=== PATIENT | female | born 1950 | race Hispanic/Latino ===

== ENCOUNTER 2016-10-21 19:02 | Inpatient (IN) | payer MEDICARE, BC ==
[2016-10-21 19:04] VITALS: BMI 25.0
[2016-10-21 19:54] LABS: BASO # 0.1 K/uL (0.0-0.2); BASO % 0.7 % (0.0-2.0); EOS # 0.1 K/uL (0.0-0.7); EOS % 1.1 % (0.0-4.0); HEMATOCRIT 38.7 % (34.0-47.0); LYMPH # 1.3 K/uL (1.0-4.3); LYMPH % 10.7 % (20.0-40.0); MEAN CELL VOLUME 89.6 fl (81.0-99.0); MEAN CORPUSCULAR HEMOGLOBIN 28.7 pg (27.0-31.0); MEAN CORPUSCULAR HGB CONC 32.1 g/dL (33.0-37.0); MEAN PLATELET VOLUME 9.2 fl (7.2-11.7); MONO # 0.5 K/uL (0.0-0.8); MONO % 4.1 % (0.0-10.0); NEUT # 10.3 K/uL (1.8-7.0); NEUT % 83.4 % (50.0-75.0); NRBC % 0.1 % (0.0-0.0); RED CELL DISTRIBUTION WIDTH 14.3 % (11.5-14.5); WHITE BLOOD COUNT 12.4 K/uL (4.8-10.8)
[2016-10-21 19:59] LABS: ALB/GLOB RATIO 1.2 (1.0-2.1); ALCOHOL SERUM < 10 mg/dl (0-10); ALKALINE PHOSPHATASE 90 U/L (38-126); ALT/SGPT 28 U/L (9-52); AST/SGOT 19 U/L (14-36); BILIRUBIN,TOTAL 0.3 mg/dl (0.2-1.3); BLOOD UREA NITROGEN 16 mg/dl (7-17); CALCIUM 9.2 mg/dL (8.4-10.2); CARBON DIOXIDE 28 mmol/L (22-30); CHLORIDE 105 mmol/L (98-107); GFR AFRICAN-AMERICAN > 60; GLUCOSE,RANDOM 124 mg/dL (65-105); MAGNESIUM 1.8 MG/DL (1.6-2.3); PHOSPHOROUS 3.4 mg/dl (2.5-4.5); POTASSIUM 3.4 MMOL/L (3.6-5.0); SODIUM 149 mmol/l (132-148); TOTAL PROTEIN 7.5 G/DL (6.3-8.2)
[2016-10-21 20:25] LABS: PARTIAL THROMBOPLASTIN TIME 24.6 SECONDS (23.3-32.5)
--- NOTE | 2016-10-21 21:32 | ED PDOC ---
HPI: Psych/Substance Abuse Time Seen by Provider: 10/21/16 19:16 Chief Complaint (Nursing): Altered Mental Status Chief Complaint (Provider): depressed vomiting History Per: Patient, Family Onset/Duration Of Symptoms: Days (1) Current Symptoms Are (Timing): Still Present Severity: Severe Associated Symptoms: Anxiety, Depression Additional Complaint(s): Pt with h/o depression. reports that she said she "just wanted to sleep " and may have taken extra sleeping medication and then started vomiting. Pt very depressed. Denies taking extra pain medications. Past Medical History Reviewed: Historical Data, Nursing Documentation, Vital Signs Vital Signs: Last Vital Signs Temp 99.4 F 10/21/16 19:09 Pulse 100 H 10/21/16 19:09 Resp 16 10/21/16 19:09 BP 171/103 H 10/21/16 19:09 Pulse Ox 96 10/21/16 19:09 - Medical History PMH: Anemia, Anxiety, Arthritis, Bipolar Disorder, Dementia, Depression, HTN, Migraine Denies: Diabetes, Hepatitis, Chronic Kidney Disease - Surgical History Surgical History: Tonsillectomy - Family History Family History: States: Unknown Family Hx - Social History Alcohol: None Drugs: Denies - Immunization History Hx Tetanus Toxoid Vaccination: No Hx Influenza Vaccination: No Hx Pneumococcal Vaccination: ( is not sure) - Home Medications Home Medications: Ambulatory Orders Medication Instructions Recorded Atorvastatin [Lipitor] 20 mg PO DAILY 07/04/16 Gabapentin [Neurontin] 600 mg PO TID 07/04/16 Lisinopril [Zestril] 20 mg PO DAILY 07/04/16 Omeprazole 40 mg PO DAILY 07/04/16 Timolol Maleate [Timoptic] 2 drop OP DAILY 07/04/16 Travoprost [Travatan Z] 2 drop OP DAILY 07/04/16 Oxycodone HCl/Acetaminophen 1 tab PO Q8H PRN 10/22/16 [Oxycodon-Acetaminophen 7.5-325] Diclofenac Epolamine [Flector] 2 each TD HS PRN 10/25/16 QUEtiapine [SEROquel] 50 mg PO Q12 #28 tab 10/25/16 Zolpidem [Ambien] 5 mg PO HS PRN #14 tab 10/25/16 methIMAzole [Tapazole] 5 mg PO BID #60 tab 10/25/16 - Allergies Allergies/Adverse Reactions: Allergies Allergy/AdvReac Type Severity Reaction Status Date / Time pregabalin [From Lyrica] Allergy RASH Verified 10/22/16 00:25 Review of Systems ROS Statement: Except As Marked, All Systems Reviewed And Found Negative (and as per HPI) Constitutional: Positive for: Chills, Weakness, Malaise Gastrointestinal: Positive for: Nausea, Vomiting. Negative for: Abdominal Pain , Diarrhea Psych: Positive for: Anxiety, Depression. Negative for: Suicidal ideation, Withdrawal Physical Exam - Reviewed Nursing Documentation Reviewed: Yes Vital Signs Reviewed: Yes - Physical Exam Appears: Positive for: Non-toxic, In Acute Distress Head Exam: Positive for: ATRAUMATIC, NORMOCEPHALIC Skin: Positive for: Warm, Dry Eye Exam: Positive for: EOMI, PERRL ENT: Negative for: Pharyngeal Erythema, Tonsillar Exudate Neck: Positive for: Painless ROM, Supple Cardiovascular/Chest: Positive for: Regular Rate, Rhythm, Chest Non Tender. Negative for: Murmur Respiratory: Positive for: Normal Breath Sounds. Negative for: Wheezing Gastrointestinal/Abdominal: Positive for: Bowel Sounds, Soft. Negative for: Tenderness, Mass, Distended, Guarding Back: Positive for: Normal Inspection. Negative for: Vertebral Tenderness Extremity: Positive for: Normal ROM. Negative for: Pedal Edema Lymphatic: Negative for: Adenopathy Neurologic/Psych: Positive for: Alert, fisheries enforcement officer II-XII (intact), Oriented (x2), Mood/ Affect (anxious and tearful). Negative for: Motor/Sensory Deficits - Laboratory Results Result Diagrams: 10/22/16 06:30 10/25/16 06:59 - ECG ECG: Positive for: Interpreted By Nh ECG Rhythm: Positive for: Normal QRS, Normal ST Segment, Sinus Rhythm O2 Sat by Pulse Oximetry: 96 Pulse Ox Interpretation: Normal - Radiology X-Ray: Interpreted by Nh X-Ray Interpretation: No Acute Disease - Progress ED Course And Treament: Vomiting improved post IV Zofran. Now pt feels anxious, and requesting dosing of her pain medications. Medically stable for psychiatric admission. Disposition - Clinical Impression Clinical Impression: Mixed anxiety and depressive disorder Counseled Patient/Family Regarding: Studies Performed, Diagnosis - Disposition Disposition Time: 20:00 Condition: STABLE
[2016-10-21] MEDS ORDERED: Enalaprilat 2.5 MG/2 ML IVP STA (23:01)
[2016-10-21] MEDS ORDERED: EnalaprilAT 1.25 mg/ml Inj ONE (23:04)
[2016-10-22] MEDS ORDERED: Magnesium Hydroxide Susp 30 ml UD PO PRN (02:23)
[2016-10-22] MEDS ORDERED: Alum-Mag Hydrox-Simethicone Susp (30 mL) PO PRN (02:23)
[2016-10-22] MEDS ORDERED: Bismuth Subsalicylate 262 mg/15 ml Sus (240 ml) PO PRN (02:23)
[2016-10-22 07:36] LABS: HEMATOCRIT 37.5 % (34.0-47.0); MEAN CELL VOLUME 89.8 fl (81.0-99.0); MEAN CORPUSCULAR HEMOGLOBIN 29.5 pg (27.0-31.0); MEAN CORPUSCULAR HGB CONC 32.9 g/dL (33.0-37.0); RED CELL DISTRIBUTION WIDTH 14.1 % (11.5-14.5)
[2016-10-22 07:53] LABS: IRON 23 ug/dL (37-170)
[2016-10-22 07:57] LABS: ALB/GLOB RATIO 1.2 (1.0-2.1); ALKALINE PHOSPHATASE 86 U/L (38-126); ALT/SGPT 29 U/L (9-52); AST/SGOT 20 U/L (14-36); BILIRUBIN,TOTAL 0.2 mg/dl (0.2-1.3); BLOOD UREA NITROGEN 17 mg/dl (7-17); CARBON DIOXIDE 29 mmol/L (22-30); CHLORIDE 103 mmol/L (98-107); CHOLESTEROL 175 mg/dL (0-199); GFR AFRICAN-AMERICAN > 60; GLUCOSE,RANDOM 114 mg/dL (65-105); POTASSIUM 3.4 MMOL/L (3.6-5.0); SODIUM 146 mmol/l (132-148); TOTAL PROTEIN 7.1 G/DL (6.3-8.2)
--- NOTE | 2016-10-22 07:57 | CARD ---
APPROVED REPORT EKG Measurement Heart [id number] <Conclusion> Normal sinus rhythm Possible Left atrial enlargement Borderline ECG
[2016-10-22 08:19] LABS: T4 10.2 ug/dl (5.5-11.0)
[2016-10-22 08:32] LABS: THYROID STIMULATING HORMONE < 0.02 mIU/ML (0.46-4.68)
[2016-10-22] MEDS: Pantoprazole 40 mg EC Tab PO SCH (09:23)
[2016-10-22] MEDS: Timolol 0.25% Ophth SOLN OD SCH (09:24)
--- NOTE | 2016-10-22 09:53 | RAD ---
HISTORY: overdose COMPARISON: No prior. FINDINGS: LUNGS: No active pulmonary disease. PLEURA: No significant pleural effusion identified, no pneumothorax apparent. CARDIOVASCULAR: Normal. OSSEOUS STRUCTURES: No significant abnormalities. VISUALIZED UPPER ABDOMEN: Normal. OTHER FINDINGS: New made of tubing overlying the right aspect of the neck and mediastinum extending over the left parasagittal upper abdomen. This could represent overlying tubing however the possibility of a TABLE GAMES SHIFT MANAGER shunt tube not excluded. IMPRESSION: No active disease.
--- NOTE | 2016-10-22 11:09 | PCM.PSYCH ---
Initial Psychiatric Evaluation - Initial Psychiatric Evaluation Type of Admission: Voluntary Legal Status: Capacity Chief Complaint (in patient's own words): "I need some help." Patient's Reaction to Hospitalization: Patient is a poor historian at times HPI: 66 yo female w/ h/o Bipolar disorder, AV shunt, presents with acute psychiatric decompensation, more disorganized, not sleeping at night, as per her primary psychiatrist, Dr. Rivas, this is not her baseline. She is prescribed Seroquel 50 mg PO Daily, but patient reports she only takes 25 mg PO Daily. As per her primary psychiatrist, the patient is normally able to care for her less abled , but when she is under stress she takes excessive amounts of her medications. Patient is currently denying depression, but does report anxiety. When asked about hallucinations, she states that she hears music, but that that is chronic (does not seem like a true hallucinations). Although she denies symptoms, she has been pacing the unit, is bizarre at times and not always oriented x 3. PPHx: H/o multiple psychiatric admissions, h/o 3 suicide attempts. Current outpatient tx with Dr. Rivas FHx: Father w/ bipolar disorder MHx: AV shunt, hypercholesterolemia, HTN, hearing loss (patient does not give an accurate medical history) All: Pregabalin SHx: Lives with her , has 1 adult son. Denies drugs/etoh/tobacco use. Current Medications: Active Medications Generic Name Dose Route Start Last Admin Trade Name Freq PRN Reason Stop Dose Admin Acetaminophen 650 mg 10/22/16 02:23 10/22/16 02:56 Tylenol 325mg Tab PO 650 mg Q4 PRN Administration Pain, moderate (4-7) Al Hydrox/Mg Hydrox/Simethicone 30 ml 10/22/16 02:23 Maalox Plus 30 Ml PO Q4 PRN Dyspepsia Atorvastatin Calcium 20 mg 10/22/16 09:00 10/22/16 09:23 Lipitor PO 20 mg DAILY LYDIA Administration Bismuth Subsalicylate 524 mg 10/22/16 02:23 Pepto-Bismol PO Q4 PRN Diarrhea Home Med 2 drop 10/22/16 09:00 Travoprost [Travatan Z] OP DAILY LYDIA Lisinopril 20 mg 10/22/16 09:00 10/22/16 09:25 Zestril PO 20 mg DAILY LYDIA Administration Lorazepam 0.5 mg 10/22/16 02:23 10/22/16 02:57 Ativan PO 11/05/16 02:24 0.5 mg HS PRN Administration Insomnia Lorazepam 0.5 mg 10/22/16 02:23 Ativan PO 11/05/16 02:24 Q6 PRN Anixety/Agitation Magnesium Hydroxide 30 ml 10/22/16 02:23 Milk Of Magnesia PO HS PRN Constipation Pantoprazole Sodium 40 mg 10/22/16 09:00 10/22/16 09:23 Protonix Ec Tab PO 40 mg DAILY LDYIA Administration Quetiapine Fumarate 50 mg 10/22/16 10:45 Seroquel PO DAILY LYDIA Quetiapine Fumarate 100 mg 10/22/16 22:00 Seroquel PO HS LYDIA Timolol Maleate 2 drop 10/22/16 09:00 10/22/16 09:24 Timoptic 0.25% Ophth Soln OD 2 drop DAILY LYDIA Administration Zolpidem Tartrate 5 mg 10/22/16 05:18 Ambien PO HS PRN Insomnia Past Psychiatric History - Past Psychiatric History Previous Treatment History: Inpatient Pertinent Medical Hx (Current Medical&Sleep Prob, Allergies): Allergies Allergy/AdvReac Type Severity Reaction Status Date / Time pregabalin [From Lyrica] Allergy RASH Verified 10/22/16 00:25 Atorvastatin [Lipitor] 20 mg PO DAILY 07/04/16 Diclofenac Epolamine [Flector] 1 each TD DAILY 07/04/16 Gabapentin [Neurontin] 600 mg PO Q6 07/04/16 Lisinopril [Zestril] 20 mg PO DAILY 07/04/16 Meloxicam [Mobic] 15 mg PO DAILY 07/04/16 Omeprazole 40 mg PO DAILY 07/04/16 Timolol Maleate [Timoptic Ocumeter Plus 5 ml] 2 drop OP DAILY 07/04/16 Travoprost [Travatan Z 5 ml] 2 drop OP DAILY 07/04/16 Zolpidem Tartrate [Ambien] 1 tab PO HS 07/04/16 Review of Systems - Review of Systems All systems: reviewed and no additional remarkable complaints except - Psychiatric Psychiatric: As Per HPI, Abnormal Sleep Pattern, Anxiety, Behavioral Changes, Difficulty Concentrating Mental Status Examination - Personal Presentation Personal Presentation: Looks stated age Additional comments: Missing several teeth - Affect Affect: Broad - Motor Activity Motor Activity: Calm - Reliability in Providing Information Reliability in Providing Information: Poor, due to cognitve impairment - Speech Speech: Other (Mostly organized, but has periods of disorganization and irrelevance) - Mood Mood: Anxious - Formal Thought Process Formal Thought Process: Loosening of associations - Obsessions/Compulsions Obsessions: No Compulsions: No - Cognitive Functions Orientation: Person, Place, Situation, Time Sensorium: Alert Estimate of Intelligence: Average Judgement: Intact, as evidence by: Insight regarding need for hospitalization Memory: Recent intact, as evidence by: Other (Poor historian at times, but able to give some history) - Risk Risk: Diminished functioning - Strength & Assets Inventory Strength & Assets Inventory: Cooperative DSM 5 DX - DSM 5 DSM 5 Diagnosis: Bipolar Disorder - Recommended/Plan of Treatment Treatment Recommendations and Plan of Treatment: 66 yo female with bipolar disorder, acute decompensation, needs acute inpatient psychiatric admission for treatment and stabilization. Plan: -Admit to [facility] -Increase Seroquel to 50 mg PO Q12 hr -Dietitian referral -Pt eval/treat -Routine medicine consult -Individual, group and milieu tx Projected ELOS: 4-7 days Discharge Plan and Discharge Criteria: Discharge to home when psychiatrically stable - Smoking Cessation Smoking Cessation Initiated: No Reason for not providing: Not indicated
[2016-10-22 20:10] LABS: RBC URINE 3 /hpf (0-3); URINE BACTERIA RARE (<OCC); URINE BILIRUBIN NEGATIVE (NEGATIVE); URINE BLOOD NEGATIVE (NEGATIVE); URINE COLOR STRAW (YELLOW); URINE GLUCOSE (UA) NEG (Normal); URINE KETONE NEGATIVE (NEGATIVE); URINE LEUKOCYTE ESTERASE SMALL Leu/uL (Negative); URINE PROTEIN NEGATIVE (NEGATIVE); URINE UROBILINOGEN 0.2-1.0 mg/dL (0.2-1.0); WBC URINE 5 /hpf (0-5)
[2016-10-22] MEDS: Latanoprost 0.005% Opht SOUTION OU SCH (21:15)
[2016-10-22] MEDS ORDERED: Potassium Chloride 20 mEq ER Tab PO ONE (21:22)
[2016-10-22] MEDS ORDERED: Oxycodone/Acetaminophen 5/325 mg Tab PO PRN (21:25)
[2016-10-22] MEDS: Oxycodone/Acetaminophen 5/325 mg Tab PO PRN (21:38)
--- NOTE | 2016-10-22 23:12 | CP.PCM.CON ---
History of Present Illness - History of Present Illness History of Present Illness: Attending: Dr Johns Primary Psychiatrist: Dr Ardon Reason for Consult: Management of Hypokalemia/ HTN Chief Complaint: AMS HPI: The hx is taken from the reviewed medical records as the patient is a poor historian. She is a 66 years old female who has significant hearing impairment, multiple psychiatric admissions and hx of HTN, Glaucoma, Bipolar disorder and depression. Her referred that she only wanted to sleep, anxious and may have taken extra medication and started vomiting. PMH: Anemia, Anxiety, Arthritis, Bipolar Disorder, Dementia, Depression, HTN, Migraine, HLD, bilateral Hearing impairment PSH: Tonsillectomy, AV shunt placement SH: No smoking; No alcohol use; no illegal drug use; Live with family FH: Father with Bipolar disorder Allergies: Pregabalin Review of Systems - Review of Systems Review of Systems: Review of systems is limited because of poor communication as patient is totally deaf. - Constitutional Constitutional: absent: Fever, Headache - EENT Eyes: absent: Diplopia, Floaters, Sees Flashes Ears: absent: Decreased Hearing, Ear Discharge, Ear Pain Nose/Mouth/Throat: absent: Epistaxis, Nasal Congestion, Nasal Discharge, Sinus Pain, Sinus Pressure, Sore Throat - Cardiovascular Cardiovascular: absent: Chest Pain, Dyspnea, Edema, Lightheadedness, Orthopnea, Slow Heart Rate, Syncope - Respiratory Respiratory: absent: Cough, Dyspnea, Wheezing - Gastrointestinal Gastrointestinal: Vomiting. absent: Abdominal Pain, Constipation, Diarrhea, Nausea - Musculoskeletal Additional comments: Pain to the right shoulder, right hip and the right knee. Patient uses a cane to ambulate. - Integumentary Integumentary: absent: Pruritus, Rash, Skin Ulcer, Sores, Striae, Swelling - Neurological Neurological: absent: Confusion, Dizziness, Memory Loss, Paresthesias, Weakness - Psychiatric Psychiatric: absent: Confusion, Panic Attacks, Paranoia - Endocrine Endocrine: absent: Palpitations, Polydipsia, Polyphagia, Polyuria - Hematologic/Lymphatic Hematologic: absent: Easy Bleeding, Easy Bruising Past Patient History - Past Medical History & Family History Past Medical History?: Yes - Past Social History Smoking Status: Never Smoked Chewing Tobacco Use: No Cigar Use: No Alcohol: None Drugs: Denies Home Situation {Lives}: With Family - CARDIAC Hx Hypercholesterolemia: Yes Hx Hypertension: Yes - PULMONARY Hx Respiratory Disorders: No Hx Tuberculosis: No - NEUROLOGICAL Hx Dementia: Yes Hx Migraine: Yes - HEENT Hx HEENT Problems: No - RENAL Hx Chronic Kidney Disease: No - ENDOCRINE/METABOLIC Hx Endocrine Disorders: No - HEMATOLOGICAL/ONCOLOGICAL Hx Anemia: Yes - INTEGUMENTARY Hx Dermatological Problems: No - MUSCULOSKELETAL/RHEUMATOLOGICAL Hx Falls: No - GASTROINTESTINAL Hx Gastrointestinal Disorders: No - GENITOURINARY/GYNECOLOGICAL Hx Genitourinary Disorders: No - PSYCHIATRIC Hx Anxiety: Yes Hx Bipolar Disorder: Yes Hx Depression: Yes Hx Substance Use: No - SURGICAL HISTORY Hx Surgeries: Yes Hx Tonsillectomy: Yes - ANESTHESIA Hx Anesthesia: Yes Hx Anesthesia Reactions: No Hx Malignant Hyperthermia: No Meds Allergies/Adverse Reactions: Allergies Allergy/AdvReac Type Severity Reaction Status Date / Time pregabalin [From Lyrica] Allergy RASH Verified 10/22/16 00:25 - Medications Medications: Current Medications Acetaminophen (Tylenol 325mg Tab) 650 mg PO Q4 PRN PRN Reason: Pain, moderate (4-7) Last Admin: 10/22/16 02:56 Dose: 650 mg Al Hydrox/Mg Hydrox/Simethicone (Maalox Plus 30 Ml) 30 ml PO Q4 PRN PRN Reason: Dyspepsia Atorvastatin Calcium (Lipitor) 20 mg PO DAILY [facility] Last Admin: 10/22/16 09:23 Dose: 20 mg Bismuth Subsalicylate (Pepto-Bismol) 524 mg PO Q4 PRN PRN Reason: Diarrhea Gabapentin (Neurontin) 600 mg PO TID [facility] Latanoprost (Xalatan Opht) 2 drop OU HS [facility] Lisinopril (Zestril) 20 mg PO DAILY [facility] Last Admin: 10/22/16 09:25 Dose: 20 mg Lorazepam (Ativan) 0.5 mg PO HS PRN PRN Reason: Insomnia Stop: 11/05/16 02:24 Last Admin: 10/22/16 02:57 Dose: 0.5 mg Lorazepam (Ativan) 0.5 mg PO Q6 PRN PRN Reason: Anixety/Agitation Stop: 11/05/16 02:24 Magnesium Hydroxide (Milk Of Magnesia) 30 ml PO HS PRN PRN Reason: Constipation Oxycodone/Acetaminophen (Percocet 5/325 Mg Tab) 2 tab PO Q4 PRN PRN Reason: Pain, severe (8-10) Stop: 10/25/16 21:26 Oxycodone/Acetaminophen (Percocet 5/325 Mg Tab) 1 tab PO Q4 PRN PRN Reason: Pain, moderate (4-7) Stop: 10/25/16 21:27 Last Admin: 10/22/16 21:38 Dose: 1 tab Pantoprazole Sodium (Protonix Ec Tab) 40 mg PO DAILY [facility] Last Admin: 10/22/16 09:23 Dose: 40 mg Quetiapine Fumarate (Seroquel) 50 mg PO DAILY [facility] Last Admin: 10/22/16 11:30 Dose: 50 mg Quetiapine Fumarate (Seroquel) 50 mg PO HS [facility] Last Admin: 10/22/16 21:17 Dose: 50 mg Timolol Maleate (Timoptic 0.25% Ophth Soln) 2 drop OD DAILY [facility] Last Admin: 10/22/16 09:24 Dose: 2 drop Zolpidem Tartrate (Ambien) 5 mg PO HS PRN PRN Reason: Insomnia Last Admin: 10/22/16 22:13 Dose: 5 mg Physical Exam - Constitutional Appears: No Acute Distress - Head Exam Head Exam: ATRAUMATIC, NORMAL INSPECTION, NORMOCEPHALIC - Eye Exam Eye Exam: EOMI, Normal appearance Pupil Exam: NORMAL ACCOMODATION, PERRL - ENT Exam ENT Exam: Mucous Membranes Moist, Normal Exam, Normal External Ear Exam, Normal Oropharynx - Neck Exam Neck exam: Positive for: Full Rom, Normal Inspection. Negative for: Lymphadenopathy, Meningismus - Respiratory Exam Respiratory Exam: Clear to Auscultation Bilateral. absent: Rales, Rhonchi, Wheezes - Cardiovascular Exam Cardiovascular Exam: REGULAR RHYTHM, RRR, +S1, +S2. absent: Gallop, JVD - GI/Abdominal Exam GI & Abdominal Exam: Normal Bowel Sounds. absent: Mass, Organomegaly, Soft, Tenderness - Rectal Exam Rectal Exam: Deferred - Extremities Exam Extremities exam: Positive for: full ROM, normal inspection. Negative for: calf tenderness, pedal edema, tenderness - Neurological Exam Neurological exam: Alert, CN II-XII Intact, Normal Gait, Oriented x3, Reflexes Normal - Psychiatric Exam Psychiatric exam: Normal Affect, Normal Mood - Skin Skin Exam: Dry, Intact, Normal Color, Warm Results - Vital Signs Recent Vital Signs: Last Vital Signs Temp 97.5 F L 10/22/16 15:32 Pulse 90 10/22/16 21:00 Resp 19 10/22/16 21:00 BP 146/79 10/22/16 21:00 Pulse Ox 97 10/22/16 01:30 - Labs Result Diagrams: 10/22/16 06:30 10/22/16 06:30 Labs: Laboratory Results - last 24 hr 10/22/16 10/22/16 06:30 19:51 WBC 11.0 H RBC 4.18 Hgb 12.3 Hct 37.5 MCV 89.8 MCH 29.5 MCHC 32.9 L RDW 14.1 Plt Count 218 Sodium 146 Potassium 3.4 L Chloride 103 Carbon Dioxide 29 Anion Gap 17 BUN 17 Creatinine 0.6 L Est GFR ( Amer) > 60 Est GFR (Non-Af Amer) > 60 Random Glucose 114 H Hemoglobin A1c 5.9 Calcium 9.0 Iron 23 L TIBC 302 % Saturation 8 L Ferritin 35.7 Total Bilirubin 0.2 AST 20 ALT 29 Alkaline Phosphatase 86 Total Protein 7.1 Albumin 3.8 Globulin 3.2 Albumin/Globulin Ratio 1.2 Triglycerides 82 Cholesterol 175 LDL Cholesterol Direct 83 HDL Cholesterol 58 Vitamin B12 562 Free T4 1.43 Thyroxine (T4) 10.2 TSH 3rd Generation < 0.02 L Urine Color Straw Urine Clarity Clear Urine pH 6.0 Ur Specific Semora < 1.005 Urine Protein Negative Urine Glucose (UA) Neg Urine Ketones Negative Urine Blood Negative Urine Nitrate Negative Urine Bilirubin Negative Urine Urobilinogen 0.2-1.0 Ur Leukocyte Esterase Small Urine RBC (Auto) 3 Urine Microscopic WBC 5 Ur Squamous Epith Cells 4 Urine Bacteria Rare Urine Opiates Screen Negative Urine Methadone Screen Negative Ur Barbiturates Screen Negative Ur Phencyclidine Scrn Negative Ur Amphetamines Screen Negative U Benzodiazepines Scrn Negative U Oth Cocaine Metabols Negative U Cannabinoids Screen Negative RPR Nonreactive - Impressions Impression: NSR 94/min - Imaging and Cardiology Chest x-ray Status: Report reviewed by me Additional comment: No active disease Assessment & Plan - Assessment and Plan (Free Text) Assessment: #. Hypokalemia #. HTN #. Arthritis, #. Migraine #. Arthritis Plan: 66 years old female who has significant hearing impairment, multiple psychiatric admissions and hx of HTN, Glaucoma, Bipolar disorder and depression. Her referred that she only wanted to sleep, anxious and may have taken extra medication and started vomiting. #. Hypokalemia - Repleted withOral KCL - Follow Electrolyte #. HTN Essential- Uncontrolled - Continue Zestril 20mg PO daily - Monitor blood pressures #. Arthritis, - Percocet - To continue Mobic out patient #. Migraine - Symptomatic management #. Bipolar disorder - Psychiatric management. #. Neutrophylic Leulocytosis reactive #. Stress ulcer Prophylaxis with Pantoprazole #. Code Status: Full - Date & Time Date: 10/22/16 Time: 23:12
[2016-10-23] MEDS: Pantoprazole 40 mg EC Tab PO SCH (10:45)
[2016-10-23] MEDS: Timolol 0.25% Ophth SOLN OD SCH (10:47)
--- NOTE | 2016-10-23 11:29 | PCM.PYCHPN ---
Psychiatric Progress Note - Psychiatric Progress Note Patient seen today, length of contact: chart reviewed case discussed with team Patient Chief Complaint: was at home, was feeling uneasy, my spoke to my dr and thought i should come in. on unit pt is noted to be pleasant , at times is tangential, almost appears confused. staff corroborate this behavior. is adherent with medications and milieu. is noted to be seated outside of room by nursing station. pt does admit to eating many sweats and carbohydrates (cheese doodles). admits that in past was told that thyroid "was borderline but was not started on medications". denies notable blood when cleansing after bowel movements. denies sob, denies palpitations. staff report pt is eating meals. 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 therapy DSM 5 Symptoms Update: anhedonia confusion self care family circumstances Medication Change: Yes (multimineral/multivitamin) Medical Record Reviewed: Yes Consults ordered or reviewed: endocrinology-decreased t4 (0.0) and elevated glucose x 2 and high normal hgba1c Mental Status Examination - Cognitive Function Orientation: Person, Place, Situation, Time Attention: WNL Concentration: Poor Association: Loose Fund of Knowledge: Poor Decription of patient's judgement and insights: poor, tangential, confused - Mood Mood: Anxious - Affect Affect: Broad - Speech Speech: Soft - Formal Thought Process Formal Thought Process: Loosening of associations - Homicidal Ideation Homicidal Ideation: No Goal/Treatment Plan - Goal/Treatment Plan Need for Continued Stay: Remain at risks for inpatient hospitalization, Discharge may exacerbated symptoms, Failed transitioning, Severe functional impairment Progress Toward Problem(s) and Goals/Treatment Plan: inpt milieu assessment/observation/vital signs per protocol and per clinical status start multimineral/multivitamin once daily-decreased iron iron level with [facility] on 10/25/[address] quinteros-decreased t4(0.0) and elevated blood glucose x 2 (high normal hgba1c) get up slowly falls precautions discharge planning in progress Estimated Date of D/C: 10/25/16 - Smoking Cessation Smoking Cessation Initiated: No Reason for not providing: defers
--- NOTE | 2016-10-23 17:02 | CON ---
DATE: 10/23/2016 HISTORY OF PRESENT ILLNESS: This is a 66-year-old female with bipolar disorder admitted here for [facility] psychiatric evaluation and management and is now being referred for evaluation of abnormal thyro id function studies. PAST MEDICAL HISTORY: As mentioned above, history of bipolar disorder with multiple psychiatric admi ssions for psychiatric decompensation with also prior suicidal attempts and gestures. She is being f ollowed by Dr. Anna Rivas as her [facility] psychiatrist. She has a prior history of hydrocephalus a nd had a ventricular shunt placement undertaken. FAMILY HISTORY: She also has a father having suffered the same condition and positive for hypertensi on and heart disease. SOCIAL HISTORY: The patient has a supportive family. She is and has one adult son. No known substance use. REVIEW OF SYSTEMS: As mentioned above, admits to generalized body weakness with easy fatigability an d tiredness and suboptimal energy level. Also admits to episodic dizziness and lightheadedness, wors e on the day of admission. No palpitations or PNDs, but admits to occasional precordial tightness an d chest pains with shortness of breath, especially on exertion. Her oral intake is variable with ezequiel sea, dyspepsia and vague upper abdominal pain. No recent alterations of bowel or urinary patterns. A lso, admits to occasional constipation. PHYSICAL EXAMINATION: GENERAL: This is an average built female in no apparent distress. VITAL SIGNS: Blood pressure of 140/80, pulse of 70 beats per minute, regular, temperature 99 and res pirations 20. Height is 5 feet 6 inches, weight is 135 pounds. LABORATORY DATA: Her chemistries showed a BUN of 16, sodium 149, potassium 3.4, chloride 105, CO2 28 , glucose 124 and creatinine 0.6. The initial thyroid study showed a T4 of 10.2 with a free T4 of 1. 43 and a TSH of less than 0.02. ASSESSMENT: This is a 66-year-old female with major depression on the background of chronic schizoaf fective disorder/bipolar disorder and is now being referred for evaluation of abnormal thyroid functi on studies. She remains clinically euthyroid, but biochemically has evidence of a suppressed TSH, mo st likely related to the so-called acute sick euthyroid syndrome very common in patients with acute p sychiatric decompensation. There is no evidence of any overt thyromegaly or palpable thyroid nodules at this time. PLAN OF MANAGEMENT: We will obtain a comprehensive thyroid hormonal profile with a repeat total and free T4 and TSH and we will also obtain thyroid antibodies which will confirm and/or negate the prese nce of underlying thyroid autoimmunity. We will do a thyroid peroxidase antibody and a thyroid stimu lating immunoglobulin level as ordered. No indication at this time for any kind of thyroid pharmacot herapy. We will follow. Afia Ramirez MD cc: [id number] TT: 10/23/2016 17:01:43 Confirmation # [id number] Dictation # [id number] sn
[2016-10-23] MEDS: Multivitamin With Minerals Tab PO SCH (17:52)
[2016-10-23] MEDS: Latanoprost 0.005% Opht SOUTION OU SCH (21:15)
[2016-10-23 22:51] LABS: FOLATE > 20.0 ng/mL
[2016-10-24] MEDS: Oxycodone/Acetaminophen 5/325 mg Tab PO PRN ×3 (07:00→21:32)
[2016-10-24 08:17] LABS: ALB/GLOB RATIO 1.2 (1.0-2.1); ALKALINE PHOSPHATASE 72 U/L (38-126); ALT/SGPT 25 U/L (9-52); AST/SGOT 19 U/L (14-36); BILIRUBIN,TOTAL 0.4 mg/dl (0.2-1.3); BLOOD UREA NITROGEN 24 mg/dl (7-17); CALCIUM 9.1 mg/dL (8.4-10.2); CARBON DIOXIDE 30 mmol/L (22-30); CHLORIDE 106 mmol/L (98-107); GFR AFRICAN-AMERICAN > 60; GLUCOSE,RANDOM 91 mg/dL (65-105); POTASSIUM 3.9 MMOL/L (3.6-5.0); SODIUM 148 mmol/l (132-148)
[2016-10-24 08:25] LABS: T4 10.3 ug/dl (5.5-11.0)
[2016-10-24 08:39] LABS: THYROID STIMULATING HORMONE < 0.02 mIU/ML (0.46-4.68)
[2016-10-24] MEDS: Pantoprazole 40 mg EC Tab PO SCH (08:57)
[2016-10-24] MEDS: Multivitamin With Minerals Tab PO SCH (08:57)
[2016-10-24] MEDS: Timolol 0.25% Ophth SOLN OD SCH (08:58)
--- NOTE | 2016-10-24 11:11 | PN ---
DATE: 10/24/2016 ROOM: 306 SUBJECTIVE: This is a 66-year-old female with bipolar disorder and admitted here with major depressi on and behavioral disturbances and is now undergoing psychiatric evaluation and management and has al so been referred for evaluation of abnormal thyroid function studies. On further inquiry today, she admits that she was actually being followed closely by her primary physician, Dr. Mahoney, regarding a bnormal thyroid studies, but has not yet been placed on any kind of medication at this time. She rem ains clinically euthyroid at this time. However, the repeat chemistry showed a BUN of 24, sodium 148 , potassium 3.9, chloride 106, CO2 30, glucose 91, and creatinine 0.7. The repeat thyroid studies sh owed a T4 of 10.3 mcg/dL with a free T4 of 1.63 and a TSH of less than 0.02, which is really quite blanco ppressed and has been confirmed from the initial level, which was also suppressed at less than 0.02. This is, however, indicative of the so-called subclinical hyperthyroidism, most likely related to un derlying autoimmune thyroiditis, i.e., the so-called apathetic hyperthyroidism in the elderly. So at this time because of her behavioral disturbances and emotional lability, we will start her on an emp irical dose of a very low medical therapy with Tapazole given as 5 mg b.i.d. after meals to start tod ay as ordered. We will titrate incrementally as indicated to optimize metabolic control. We will al so obtain a thyroid stimulating immunoglobulin and thyroid peroxidase antibody, which will confirm an d/or negate the presence of underlying thyroid autoimmunity. The plan of care has been explained in detail to the patient and she understands the imperative need for low dose medical therapy as mention ed. She has also been insistent on restarting her Tylenol with codeine 3 times a day, but this will be deferred to the medical evaluation as obtained thereof. We will obtain serial thyroid studies and adjust her dose regimen accordingly. We will follow and advise accordingly. Afia Ramirez MD cc: [id number] TT: 10/24/2016 11:11:11 Confirmation # [id number] Dictation # [id number] chirag
[2016-10-24] MEDS: methIMAzole 5 MG TAB PO SCH ×2 (12:25→17:06)
[2016-10-24] MEDS: Latanoprost 0.005% Opht SOUTION OU SCH (23:19)
--- NOTE | 2016-10-25 03:20 | PCM.PYCHPN ---
Psychiatric Progress Note - Psychiatric Progress Note Patient seen today, length of contact: NOTE FOR [id number] chart reviewed case discussed with team Patient Chief Complaint: was at home, was feeling uneasy, my spoke to my dr and thought i should come in. on unit pt is noted to be pleasant , at times is tangential, almost appears confused. staff corroborate this behavior. is adherent with medications and milieu. is noted to be seated outside of room by nursing station. pt does admit to eating many sweats and carbohydrates (cheese doodles). admits that in past was told that thyroid "was borderline but was not started on medications". denies notable blood when cleansing after bowel movements. denies sob, denies palpitations. staff report pt is eating meals. Problems Identified/Issues Discussed: alteration in mood alteration in self care: diet alteration in thought process Medical Problems: per chart, decreased t4(0.0) and elevated glucose x 2 Diagnostic Results: per psychiatry per medicine per nursing per social insurance adviser per recreational therapy Medication Change: No (multimineral/multivitamin) Medical Record Reviewed: Yes Mental Status Examination - Cognitive Function Orientation: Person, Place, Situation, Time Attention: WNL Concentration: WNL Association: WNL Fund of Knowledge: WN Decription of patient's judgement and insights: improving but remains somewhat impaired - Mood Mood: Anxious - Affect Affect: Broad - Speech Speech: Soft - Formal Thought Process Formal Thought Process: Loosening of associations - Suicidal Ideation Suicidal Ideation: No - Homicidal Ideation Homicidal Ideation: No Goal/Treatment Plan - Goal/Treatment Plan Need for Continued Stay: Remain at risks for inpatient hospitalization, Discharge may exacerbated symptoms, Failed transitioning, Severe functional impairment Progress Toward Problem(s) and Goals/Treatment Plan: inpt milieu assessment/observation/vital signs per protocol and per clinical status start multimineral/multivitamin once daily-decreased iron iron level with tibc on 10/25/[address] quinteros today and medication was stated for hyperthyroidism get up slowly falls precautions discharge planning in progress Estimated Date of D/C: 10/25/16 - Smoking Cessation Smoking Cessation Initiated: No Reason for not providing: defers
[2016-10-25] MEDS: Oxycodone/Acetaminophen 5/325 mg Tab PO PRN ×3 (06:40→23:29)
[2016-10-25 07:50] LABS: IRON 38 ug/dL (37-170)
[2016-10-25 08:02] LABS: BLOOD UREA NITROGEN 23 mg/dl (7-17); CALCIUM 8.3 mg/dL (8.4-10.2); CARBON DIOXIDE 28 mmol/L (22-30); CHLORIDE 107 mmol/L (98-107); GFR AFRICAN-AMERICAN > 60; GLUCOSE,RANDOM 92 mg/dL (65-105); SODIUM 146 mmol/l (132-148)
[2016-10-25] MEDS: Multivitamin With Minerals Tab PO SCH (08:50)
[2016-10-25] MEDS: Pantoprazole 40 mg EC Tab PO SCH (08:51)
[2016-10-25] MEDS: Timolol 0.25% Ophth SOLN OD SCH (08:52)
[2016-10-25] MEDS: methIMAzole 5 MG TAB PO SCH ×2 (08:53→16:15)
--- NOTE | 2016-10-25 10:21 | PCM.PYCHPN ---
Psychiatric Progress Note - Psychiatric Progress Note Patient seen today, length of contact: Patient evaluated, case discussed with team, chart reviewed, 35 min Patient Chief Complaint: "I'm feeling better" Problems Identified/Issues Discussed: No significant events over the weekend. The patient is calm, cooperative, compliant with medications and engages appropriately with peers. Patient reports that she feels that she is ready to return home tomorrow. She was counseled that she should not take more than 5 mg of Ambien because she is an elderly female. She was informed that it is not safe for her to take the 12.5 mg PO HS that she normally takes. She denies current psychotic symptoms. No reported depression or anxiety. Medication Change: No Medical Record Reviewed: Yes Mental Status Examination - Cognitive Function Orientation: Person, Place, Situation, Time Memory: Intact Attention: WNL Concentration: WNL Association: WNL Fund of Knowledge: WN Decription of patient's judgement and insights: Fair I/J - Mood Mood: Neutral - Affect Affect: Broad - Speech Speech: Soft - Formal Thought Process Formal Thought Process: No Impairment Psychotic Thoughts and Behaviors: No AH/VH/Paranoia - Suicidal Ideation Suicidal Ideation: No - Homicidal Ideation Homicidal Ideation: No Goal/Treatment Plan - Goal/Treatment Plan Need for Continued Stay: Remain at risks for inpatient hospitalization Progress Toward Problem(s) and Goals/Treatment Plan: 66 yo female with bipolar disorder, acute decompensation, now improving with the titration of Seroquel. Plan: -Continue Seroquel 50 mg PO Q12 hr -Individual, group and milieu tx -Discharge to home tomorrow with continued outpatient therapy with Dr. De La Rosa Estimated Date of D/C: 10/26/16
[2016-10-25 16:43] VITALS: O2SAT 96
--- NOTE | 2016-10-25 19:13 | PN ---
DATE: 10/25/2016 ENDO FOLLOWUP NOTE LOCATION: In room [facility], [facility]. This is a 66-year-old female with recent exacerbation of major depression and associated behavioral c hanges with underlying bipolar disorder and is now being followed closely in the psychiatric unit for evaluation and management. She is also being followed from the endocrine viewpoint for recent evalu ation of subclinical hyperthyroidism and has been started on Tapazole medications and is tolerating t he aforementioned medications as given. Her latest chemistries showed a BUN of 23, sodium 146, potassium 4.0, chloride 107, CO2 of 28, glucos e 92 and creatinine 0.6. Her thyroid study showed a T4 of 10.3 mcg/dL with a TSH of less than 0.02, which has been confirmed and is actually the same result from the initial evaluation and testing. So at this time, we will continue the low-dose Tapazole given as 5 mg b.i.d. after meals as started a nd we will titrate incrementally as indicated to optimize metabolic control. The thyroid antibodies have been sent out to a reference lab and this will confirm or negate the presence of underlying thyr oid autoimmunity. We will follow and advise accordingly. Afia Ramirez MD cc: [phone] TT: 10/25/2016 19:12:09 Confirmation # [id number] Dictation # [id number] mn
[2016-10-25] MEDS ORDERED: DICLOFENAC EPOLAMINE TD PRN (19:19)
[2016-10-25] MEDS ORDERED: Oxycodone/Acetaminophen 5/325 mg Tab PO PRN ×2 (23:11→23:15)
[2016-10-25] MEDS: Latanoprost 0.005% Opht SOUTION OU SCH (23:31)
[2016-10-26 05:54] VITALS: BP 158/82; PULSE 77; RESP 19; TEMP 98.1
[2016-10-26] MEDS: Oxycodone/Acetaminophen 5/325 mg Tab PO PRN (05:59)
[2016-10-26] MEDS: Multivitamin With Minerals Tab PO SCH (08:31)
[2016-10-26] MEDS: methIMAzole 5 MG TAB PO SCH (08:32)
[2016-10-26] MEDS: Timolol 0.25% Ophth SOLN OD SCH (08:33)
[2016-10-26] MEDS: Pantoprazole 40 mg EC Tab PO SCH (08:33)
--- NOTE | 2016-10-26 08:52 | PCM.PYCHDC ---
Mental Status Examination - Mental Status Examination Orientation: Person, Place, Situation, Time Memory: Intact Mood: Neutral Affect: Broad Speech: Appropriate Attention: WNL Concentration: WNL Association: WNL Fund of Knowledge: WNL Formal Thought Process: No Impairment Description of patient's judgement and insight: Fair I/J Psychotic Thoughts and Behaviors: No AH/VH/Paranoia Suicidal Ideation: No Current Homicidal Ideation?: No Discharge Summary - Discharge Note Reason for Hospitalization: Patient is a poor historian at times HPI: 66 yo female w/ h/o Bipolar disorder, AV shunt, presents with acute psychiatric decompensation, more disorganized, not sleeping at night, as per her primary psychiatrist, Dr. De La Rosa, this is not her baseline. She is prescribed Seroquel 50 mg PO Daily, but patient reports she only takes 25 mg PO Daily. As per her primary psychiatrist, the patient is normally able to care for her less abled , but when she is under stress she takes excessive amounts of her medications. Patient is currently denying depression, but does report anxiety. When asked about hallucinations, she states that she hears music, but that that is chronic (does not seem like a true hallucinations). Although she denies symptoms, she has been pacing the unit, is bizarre at times and not always oriented x 3. PPHx: H/o multiple psychiatric admissions, h/o 3 suicide attempts. Current outpatient tx with Dr. De La Rosa FHx: Father w/ bipolar disorder MHx: AV shunt, hypercholesterolemia, HTN, hearing loss (patient does not give an accurate medical history) All: Pregabalin SHx: Lives with her , has 1 adult son. Denies drugs/etoh/tobacco use. Laboratory Data: Abnormal Lab Results 10/24/16 05:30 Thyroperoxidase Ab 2 Consultations:: List each consultation separately and include: 1. Reason for request. 2. Findings. 3. Follow-up Consultations: Dr. Ramirez- Recommended to start Methimazole 5 mg PO BID for hypothyroidism Summary of Hospital Course include:: 1. Description of specific treatment plan utilized for patients during their course of treatmen. 2. Summarize the time- course for resolution of acute symptoms and/or regressed behaviors. 3. Describe issues identified and worked on during hospitalization. 4. Describe medication utilized. 5. Describe medical problems identified and treated. 6. Reassessment of suicide risk Summary of Hospital Course: Patient admitted to the geriatric psychiatry unit. She was titrated up to Seroquel 50 mg PO Q12 hrs and is now more organized, appropriate towards others and denies depression/anxiety/lasha/psychosis. Individual, group and milieu tx were provided. She is now psychiatrically stable for discharge. - Final Diagnosis (DSM 5) Condition upon Discharge: STABLE DSM 5: Bipolar Disorder Disposition: HOME/ ROUTINE Follow-up Treatment Plan: 66 yo female with bipolar disorder, acute decompensation, now improved with the titration of Seroquel. She is currently psychiatrically stable for discharge. Plan: -Continue Seroquel 50 mg PO Q12 hr -Discharge to home with continued outpatient therapy with Dr. De La Rosa Patient evaluated, case discussed with team, chart reviewed, prescriptions prepared, 35 min Prescriptions/Medication Reconciliation: Zolpidem [Ambien] 5 mg PO HS PRN #14 tab PRN Reason: Insomnia QUEtiapine [SEROquel] 50 mg PO Q12 #28 tab methIMAzole [Tapazole] 5 mg PO BID #60 tab - Smoking Cessation Smoking Cessation Medication prescribed: No Reason for not providing: Not indicated, patient does not smoke - Antipsychotic Medications Pt discharged on 2 or more routine antipsychotic medications: No
--- NOTE | 2016-10-26 14:54 | PN ---
DATE: 10/26/2016 ROOM: 306. SUBJECTIVE: This is a 66-year-old female with recent major depression and behavioral changes and adm itted here for closer psychiatric evaluation and management and was also evaluated from the endocrine view point to have subclinical hyperthyroidism as noted thereof. Her latest chemistries showed a BU N of 23, sodium 146, potassium 4.0, chloride 107, CO2 28, glucose 92 and creatinine 0.6. Her latest thyroid study showed a T4 of 10.3 with a free T4 of 1.63 and a TSH of less than 0.02. So at this joey e, we will continue the recommended dosing of Tapazole at a low dose of 5 mg p.o. b.i.d. as ordered. She will follow with her primary doctor, Dr. Mahoney, in [place], for outpatient metabolic and me dical followup. She was advised to have repeat thyroid testing in 4-6 weeks for dose adjustments acc ordingly. We will follow. Afia Ramirez MD cc: [phone] TT: 10/26/2016 14:53:45 Confirmation # [id number] Dictation # [id number] [place]
[2016-10-27 19:53] LABS: TSI <89 % baseline (<140)
== END 2016-10-26 12:11 | disposition home or self-care (01) | DRG 885 ==
LOC: H.ER 19:02 → H.ERHOLD 22:05 → H.STEP 10-22 02:16
PROVIDERS: ADMIT Psychiatry & Neurology Psychiatry; ATTEND Psychiatry & Neurology Psychiatry
DX: F31.9 Bipolar disorder, unspecified (principal); G91.9 Hydrocephalus, unspecified; E06.3 Autoimmune thyroiditis; E05.90 Thyrotoxicosis, unspecified without thyrotoxic crisis or storm; I10 Essential (primary) hypertension; E78.00 Pure hypercholesterolemia, unspecified; H91.93 Unspecified hearing loss, bilateral; E87.6 Hypokalemia; R41.82 Altered mental status, unspecified; H40.9 Unspecified glaucoma; M19.90 Unspecified osteoarthritis, unspecified site; G43.909 Migraine, unspecified, not intractable, without status migrainosus; Z81.8 Family history of other mental and behavioral disorders; Z91.5 Personal history of self-harm; Z98.2 Presence of cerebrospinal fluid drainage device

== ENCOUNTER 2017-01-23 18:11 | Emergency (ER) | payer MEDICARE, BC ==
[2017-01-23 18:12] VITALS: BMI 25.0
[2017-01-23 18:22] VITALS: TEMP 99.2
[2017-01-23 19:22] LABS: HEMATOCRIT 41.9 % (34.0-47.0); MEAN CELL VOLUME 89.2 fl (81.0-99.0); MEAN CORPUSCULAR HEMOGLOBIN 28.5 pg (27.0-31.0); MEAN CORPUSCULAR HGB CONC 31.9 g/dL (33.0-37.0); RED CELL DISTRIBUTION WIDTH 15.1 % (11.5-14.5); WHITE BLOOD COUNT 10.8 K/uL (4.8-10.8)
[2017-01-23 19:32] LABS: ALB/GLOB RATIO 1.2 (1.0-2.1); ALCOHOL SERUM < 10 mg/dl (0-10); ALKALINE PHOSPHATASE 117 U/L (38-126); ALT/SGPT 39 U/L (9-52); AST/SGOT 21 U/L (14-36); BILIRUBIN,TOTAL 0.3 mg/dl (0.2-1.3); BLOOD UREA NITROGEN 17 mg/dl (7-17); CALCIUM 9.4 mg/dL (8.4-10.2); CARBON DIOXIDE 28 mmol/L (22-30); CHLORIDE 105 mmol/L (98-107); GFR AFRICAN-AMERICAN > 60; GLUCOSE,RANDOM 112 mg/dL (65-105); POTASSIUM 3.7 MMOL/L (3.6-5.0); SODIUM 145 mmol/l (132-148); TOTAL PROTEIN 8.4 G/DL (6.3-8.2)
--- NOTE | 2017-01-23 19:41 | ED PDOC ---
HPI: Psych/Substance Abuse Time Seen by Provider: 01/23/17 18:24 Chief Complaint (Nursing): Psychiatric Evaluation Chief Complaint (Provider): Aggressive at home History Per: Patient, Family History/Exam Limitations: no limitations Onset/Duration Of Symptoms: Days Current Symptoms Are (Timing): Still Present Additional Complaint(s): Pt yelling in ER that she wants medications for back pain. According to pt has history of bipolar and has been aggressive at home. states last time she had an episode like this she was admitted to the psychiatric unit. Past Medical History Reviewed: Historical Data, Nursing Documentation, Vital Signs Vital Signs: Last Vital Signs Temp 99.2 F 01/23/17 18:14 Pulse 108 H 01/23/17 18:41 Resp 18 01/23/17 18:14 BP 187/136 H 01/23/17 18:41 Pulse Ox 98 01/23/17 18:41 - Medical History PMH: Anemia, Anxiety, Arthritis, Back Problems, Bipolar Disorder, Dementia, Depression, HTN, Hypercholesterolemia, Migraine Denies: Diabetes, Hepatitis, Chronic Kidney Disease - Surgical History Surgical History: Back Surgery, Tonsillectomy - Family History Family History: States: Unknown Family Hx - Living Arrangements Living Arrangements: With Family - Social History Current smoker - smoking cessation education provided: No - Immunization History Hx Tetanus Toxoid Vaccination: No Hx Influenza Vaccination: Yes Hx Pneumococcal Vaccination: Yes ( is not sure) - Home Medications Home Medications: Ambulatory Orders Medication Instructions Recorded Atorvastatin [Lipitor] 20 mg PO DAILY 07/04/16 Travoprost [Travatan Z] 2 drop OP DAILY 07/04/16 Acetaminophen [Tylenol 325mg tab] 650 mg PO Q4 PRN #0 tab 11/08/16 Docusate [Colace] 100 mg PO BID cap 11/08/16 Enoxaparin [Lovenox] 40 mg SC Q24H syr 11/08/16 Gabapentin [Neurontin] 600 mg PO Q8 tab 11/08/16 Lidocaine 5% [Lidoderm] 1 ea TD DAILY patch 11/08/16 Lisinopril [Zestril] 20 mg PO DAILY tab 11/08/16 Pantoprazole [Protonix EC Tab] 20 mg PO DAILY #30 ect 11/08/16 QUEtiapine [Seroquel] 100 mg PO HS tab 11/08/16 oxyCODONE/Acetaminophen [Percocet 1 tab PO Q4H PRN #0 tab 11/08/16 5/325 mg Tab] - Allergies Allergies/Adverse Reactions: Allergies Allergy/AdvReac Type Severity Reaction Status Date / Time pregabalin [From Lyrica] Allergy RASH Verified 11/03/16 06:38 Review of Systems ROS Statement: Except As Marked, All Systems Reviewed And Found Negative Musculoskeletal: Positive for: Back Pain Psych: Positive for: Other Physical Exam - Reviewed Nursing Documentation Reviewed: Yes Vital Signs Reviewed: Yes - Physical Exam Appears: Positive for: Well, Non-toxic, No Acute Distress Head Exam: Positive for: ATRAUMATIC, NORMAL INSPECTION, NORMOCEPHALIC Skin: Positive for: Normal Color, Warm, DRY Eye Exam: Positive for: Normal appearance ENT: Positive for: Normal ENT Inspection Neck: Positive for: Normal, Painless ROM Cardiovascular/Chest: Positive for: Regular Rate, Rhythm Respiratory: Positive for: Normal Breath Sounds. Negative for: Accessory Muscle Use, Respiratory Distress Gastrointestinal/Abdominal: Positive for: Normal Exam, Bowel Sounds, Soft Back: Positive for: Normal Inspection Extremity: Positive for: Normal ROM Neurologic/Psych: Positive for: Alert, Oriented - Laboratory Results Result Diagrams: 01/23/17 19:14 - ECG O2 Sat by Pulse Oximetry: 98 Pulse Ox Interpretation: Normal Medical Decision Making Medical Decision Making: Endorsed pending labs, re-evaluation and crisis evaluation. Disposition - Clinical Impression Clinical Impression: Hypertension, Aggressive behavior - Patient ED Disposition Is Patient to be Admitted: Transfer of Care - Disposition Disposition: Transfer of Care Disposition Time: 19:46 Condition: STABLE
[2017-01-23 19:53] VITALS: BP 184/98; PULSE 90; RESP 16; O2SAT 99
--- NOTE | 2017-01-23 20:37 | ED PDOC ---
- Laboratory Results Result Diagrams: 01/23/17 19:14 01/23/17 19:14 - ECG O2 Sat by Pulse Oximetry: 99 Medical Decision Making Medical Decision Making: Case endorsed to story writer from CHELA Lopez at 20:00 pending crisis eval and re- eval HPI reviewed: Pt yelling in ER that she wants medications for back pain. According to pt has history of bipolar and has been aggressive at home. states last time she had an episode like this she was admitted to the psychiatric unit. Upon my evaluation, Pt speaking to crisis at bedside. repeat BP: 184/98 As per crisis, Pt deemed stable for discharge. See notes. Labs resulted and reviewed, Pt doing well on re-eval. no complaints of pain after Motrin. Stable for discharge Disposition - Clinical Impression Clinical Impression: Hypertension, Aggressive behavior - POA Present On Arrival: None - Disposition Disposition: Routine/Home Disposition Time: 20:39 Condition: STABLE Instructions: Bipolar Disorder (ED), Hypertension (ED)
--- NOTE | 2017-01-24 11:59 | RAD ---
HISTORY: Back pain, AMS COMPARISON: Chest x-ray performed 10/22/16 TECHNIQUE: Chest, one view. FINDINGS: LUNGS: No focal consolidation. Please note that chest x-ray has limited sensitivity for the detection of pulmonary masses. PLEURA: No significant pleural effusion identified. No definite pneumothorax . CARDIOVASCULAR: The cardiomediastinal silhouette appears within normal limits of size. OSSEOUS STRUCTURES: No acute osseous abnormality identified. VISUALIZED UPPER ABDOMEN: Unremarkable. 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 IMPRESSION: No acute findings. See above.
== END 2017-01-23 20:39 | disposition home or self-care (01) ==
LOC: H.ER 18:11
DX: F31.9 Bipolar disorder, unspecified (principal); I10 Essential (primary) hypertension; F03.90 Unspecified dementia, unspecified severity, without behavioral disturbance, psychotic disturbance, mood disturbance, and anxiety; F41.9 Anxiety disorder, unspecified; E78.00 Pure hypercholesterolemia, unspecified
CPT/HCPCS: 71010; 80053; 85027; 99284; G0480